=== PATIENT | male | born 1980 | race Hispanic/Latino ===

== ENCOUNTER 2017-10-28 17:33 | Inpatient (IN) | payer OTHER ==
[~2017-10-28] VITALS: Ht 172.7 cm; Wt 91.3 kg
[~2017-10-28 17:33] MED LIST: LIDOCAINE HCL 2% LOCAL INJ 5 ML SDV VIAL INJ ONE; PROPOFOL IV EMULSION 10 MG/ML 20 ML VIAL ONE
[2017-10-28 18:10] VITALS: BP 131/79
[2017-10-28 19:06] LABS: BASOPHILS % 0.5 % (0.0-1.0); EOSINOPHILS # (AUTO) 0.1 (0.0-0.4); EOSINOPHILS % 1.5 % (0.0-6.0); HEMATOCRIT 45.2 % (38.2-49.6); HEMOGLOBIN 15.4 g/dL (14.0-18.0); LYMPHOCYTES # (AUTO) 2.3 (1.0-3.2); LYMPHOCYTES % 30.5 % (18.0-39.1); MEAN CORPUSCULAR HEMOGLOBIN 29.7 pg (28-32); MEAN CORPUSCULAR HGB CONC 34.1 g/dL (31-35); MEAN CORPUSCULAR VOLUME 87.3 fL (81-99); MONOCYTES # (AUTO) 0.8 (0.2-0.8); MONOCYTES % 10.7 % (4.4-11.3); NEUTROPHILS # (AUTO) 4.2 (2.1-6.9); NEUTROPHILS % 56.7 % (38.7-80.0); PLATELET COUNT 209 x10e3/uL (140-360); RED BLOOD COUNT 5.18 x10e6/uL (4.3-5.7); RED CELL DISTRIBUTION WIDTH 12.7 % (11.7-14.4)
[2017-10-28 19:27] LABS: ALANINE AMINOTRANSFERASE 49 IU/L (0-55); ALBUMIN 3.7 g/dL (3.5-5.0); ALBUMIN/GLOBULIN RATIO 1.2 (0.8-2.0); ALKALINE PHOSPHATASE 63 IU/L (40-150); ANION GAP 12.8 mmol/L (8-16); BLOOD UREA NITROGEN 12 mg/dL (7-26); BUN/CREATININE RATIO 15 (6-25); CARBON DIOXIDE 25 mmol/L (22-29); CHLORIDE 107 mmol/L (98-107); EST GLOMERULAR FILTRATION RATE > 60 ML/MIN (60-); GLUCOSE 92 mg/dL (74-118); POTASSIUM 3.8 mmol/L (3.5-5.1); SODIUM 141 mmol/L (136-145)
[2017-10-28] MEDS ORDERED: HYDROMORPHONE 1MG/1ML INJ IV PRN (19:30)
[2017-10-28 19:39] LABS: COLOR,URINE YELLOW (YELLOW)
[2017-10-28 19:40] LABS: BILIRUBIN,URINE NEGATIVE (NEGATIVE); CLARITY,URINE CLEAR (CLEAR); KETONES,URINE NEGATIVE (NEGATIVE); LEUKOCYTE ESTERASE ,URINE NEGATIVE (NEGATIVE); NITRITE,URINE NEGATIVE (NEGATIVE); PROTEIN,URINE DIPSTICK NEGATIVE (NEGATIVE); URINE UROBILINOGEN 1 mg/dL (0.2 - 1)
[2017-10-28] MEDS: PANTOPRAZOLE 40 MG 10ML VIAL IV SCH (19:48)
[2017-10-28 19:49] LABS: BACTERIA,URINE FEW /HPF; CALCIUM OXALATE CRYSTALS,UR FEW (FEW); EPITHELIAL CELLS,URINE MODERATE /LPF; MUCUS,URINE MANY (RARE)
[2017-10-28] MEDS: ONDANSETRON HCL INJ 2 MG/ML VIAL IV PRN (19:50)
[2017-10-28] MEDS: DEXTROSE 5%/0.45% SOD CHL 1,000 ML IV SCH (19:55)
[2017-10-28 20:00] VITALS: BP 131/79
[2017-10-28] MEDS ORDERED: SODIUM CHLORIDE 0.9% 50ML 50 ML ONE (22:34)
[2017-10-28] MEDS ORDERED: IOPAMIDOL 370 MG/ML 200 ML INFUS..BTL INJ ONE (22:35)
--- NOTE | 2017-10-28 22:39 | Diagnostic Imaging Report ---
EXAM: CT CHEST, ABDOMEN, PELVIS with IV CONTRAST DATE: 10/28/2017 6:22 PM Time stamp on Exam: 2108 hours INDICATION: Dysphagia, chest pain, hiatal hernia, right upper quadrant pain COMPARISON: None TECHNIQUE: The chest, abdomen and pelvis were scanned using a multidetector helical scanner. Coronal and sagittal reformations were obtained. Dose modulation, iterative reconstruction, and/or weight based adjustment of the mA/kV was utilized to reduce the radiation dose to as low as reasonably achievable. Routine protocol performed. IV Contrast: 100 cc Isovue-370 Oral Contrast: Water CTDIvol has been reviewed. It is below the limits set by the Radiation Protocol Committee (RPC). FINDINGS: LUNGS AND AIRWAYS: The airways are patent. 8 mm nodule along the right major fissure is most consistent with an intrapulmonary lymph node. No consolidations or pulmonary edema. PLEURA: No effusions or pneumothorax HEART, MEDIASTINUM, VESSELS: Normal. No mediastinal mass or lymphadenopathy. LIVER: No masses BILIARY: The gallbladder has been removed. There is trace fluid in the gallbladder fossa. No ductal dilation. SPLEEN: No masses PANCREAS: No masses ADRENALS: No nodules KIDNEYS: Symmetric perfusion. No enhancing masses. No hydronephrosis. GI TRACT: The esophagus is mildly patulous. No wall thickening. No hiatal hernia. The stomach, small and large bowel are unremarkable. Normal appendix. VESSELS: Unremarkable PERITONEUM/RETROPERITONEUM: No free air or fluid LYMPH NODES: No lymphadenopathy REPRODUCTIVE ORGANS: Unremarkable BLADDER: Unremarkable SOFT TISSUES: Mild amount of subcutaneous stranding in the anterior abdomen, possibly related to recent procedure. No abnormal fluid collection. BONES: No suspicious bone lesions. IMPRESSION: Mildly patulous esophagus without wall thickening or evidence of hiatal hernia by CT. Cholecystectomy with small amount of fluid in the gallbladder fossa and mild stranding in the anterior abdominal subcutaneous tissues. Please correlate with possible recent cholecystectomy. Otherwise, normal CT of the chest, abdomen and pelvis. Signed by: Dr. Marilyn De Leon M.D. on 10/28/2017 9:39 PM
[2017-10-29] VITALS (7 sets, daily range): BP systolic 123–148; BP diastolic 65–99
[2017-10-29] MEDS: LORAZEPAM INJ 2 MG/ML VIAL IV PRN ×2 (02:53→09:21)
[2017-10-29] MEDS: HYDROMORPHONE 1MG/1ML INJ IV PRN ×5 (03:20→20:14)
[2017-10-29] MEDS ORDERED: ULTRAM50 MG PO (03:46)
[2017-10-29] MEDS ORDERED: ACETAMINOP325 MG/10 PO (03:47)
[2017-10-29] MEDS ORDERED: DOXYCYCLINE HY100 MG PO (03:51)
[2017-10-29] MEDS: DEXTROSE 5%/0.45% SOD CHL 1,000 ML IV SCH ×3 (06:51→20:14)
[2017-10-29] MEDS: PANTOPRAZOLE 40 MG 10ML VIAL IV SCH (08:03)
--- NOTE | 2017-10-29 15:21 | Diagnostic Imaging Report ---
PROCEDURE: BARIUM SWALLOW was performed with Sodium Carbonate and Barium. TECHNIQUE: Barium swallow examination was performed using effervescent crystals and high density barium. The usual fluoroscopy unit was not available during this examination, and a limited examination using the C-arm fluoroscopy unit was performed with the patient in the upright position. The usual prone and right anterior oblique views were not performed. COMPARISON: None. INDICATIONS: Dysphagia FINDINGS: Swallow: The esophagus was normally distensible and the mucosa was within normal limits. Gastroesophageal junction: There is no evidence of hiatal hernia. IMPRESSION: Limited examination for the reasons given above. No esophageal stricture or mass. Dictated by: Georgi Mackenzie M.D. on 10/29/2017 at 15:27 Electronically approved by: Georgi Mackenzie M.D. on 10/29/2017 at 15:27
[2017-10-29] MEDS: ONDANSETRON HCL INJ 2 MG/ML VIAL IV PRN ×2 (15:53→20:14)
[2017-10-30] VITALS (7 sets, daily range): BP systolic 126–163; BP diastolic 75–96
[2017-10-30] MEDS: HYDROMORPHONE 1MG/1ML INJ IV PRN ×6 (00:43→22:45)
[2017-10-30] MEDS: ONDANSETRON HCL INJ 2 MG/ML VIAL IV PRN ×5 (00:43→22:46)
[2017-10-30] MEDS: LORAZEPAM INJ 2 MG/ML VIAL IV PRN ×3 (01:34→20:10)
[2017-10-30] MEDS: DEXTROSE 5%/0.45% SOD CHL 1,000 ML IV SCH ×2 (05:17→20:16)
[2017-10-30] MEDS: PANTOPRAZOLE 40 MG 10ML VIAL IV SCH (09:12)
[2017-10-31 00:44] VITALS: BP 145/85
[2017-10-31] MEDS: ONDANSETRON HCL INJ 2 MG/ML VIAL IV PRN ×2 (04:30→13:29)
[2017-10-31] MEDS: HYDROMORPHONE 1MG/1ML INJ IV PRN ×2 (04:30→13:29)
[2017-10-31 05:33] VITALS: BP 152/93
[2017-10-31] MEDS: DEXTROSE 5%/0.45% SOD CHL 1,000 ML IV SCH (06:33)
[2017-10-31 08:00] VITALS: BP 126/66
[2017-10-31 09:10] VITALS: BP 126/66
[2017-10-31] MEDS ORDERED: SCOPOLAMINE 1.5 MG PATCH ONE (10:04)
[2017-10-31 11:10] VITALS: BP 140/84
--- NOTE | 2017-10-31 11:44 | Operative Report ---
DATE OF PROCEDURE: October 31, 2017 PREOPERATIVE DIAGNOSIS: Consisted of dysphagia. POSTOPERATIVE DIAGNOSES 1. Dysphagia. 2. Hiatal hernia. PROCEDURE PERFORMED: Esophagogastroduodenoscopy and balloon dilatation. PREOPERATIVE MEDICATIONS: Consisted of general anesthesia. DESCRIPTION OF PROCEDURE: Using an [employer] video gastroscope, it was inserted into the patient's oropharynx, advanced into the hypopharynx and down to the esophagus. The mucosal pattern in the esophagus was normal. There was no dilatation of the distal esophagus. There was a hiatal hernia present from 40 to 41 cm but no inflammation around it. The scope was able to pass through that area easily. No stricture was seen. The stomach was entered and insufflated with air. The mucosal pattern in the cardia, fundus, body, and antrum was viewed and found to be normal. The pylorus was visualized and entered. The duodenal bulb and postbulbar duodenum were found to be within normal limits. The endoscope was then withdrawn back up into the stomach, retroflexed viewing the cardia, fundus and below. It was normal. The endoscope was placed back into the area of the GE junction and using a 20 mm TTS balloon, the GE junction was dilated. At this point, we withdrew the endoscope back up into the esophagus where biopsies were obtained looking for any eosinophilic esophagitis. The endoscope was then withdrawn back up into the hypopharynx, oropharynx and out of the patient's mouth and procedure was ended. In conclusion, we had finding of a hiatal hernia, biopsies obtained looking for an eosinophilic esophagitis and the GE junction was dilated with a 20 mm through the scope balloon dilator because of his symptoms of dysphagia. Stomach gastritis that was present on prior exam has since gotten better and no other lesions were found. Job#: [id number] TEJAL
[2017-10-31] MEDS: PANTOPRAZOLE 40 MG 10ML VIAL IV SCH (13:21)
[2017-10-31] MEDS ORDERED: ATIVAN1 MG PO (14:30)
[2017-10-31] MEDS ORDERED: FENTANYL CITRATE/PF 100MCG/2 ML INJ ONE (14:55)
[2017-10-31] MEDS ORDERED: MIDAZOLAM HCL 2 MG/2 ML VIAL ONE (14:55)
--- NOTE | 2017-10-31 16:29 | Discharge Summary ---
ADMISSION DIAGNOSIS: Severe dysphagia. DISCHARGE DIAGNOSIS: Severe dysphagia with esophageal stricture. PRINCIPAL PROCEDURE: Esophagogastroduodenoscopy with esophageal dilation. HISTORY OF PRESENT ILLNESS: The patient is a 37-year-old male admitted to the hospital with complaints of severe dysphagia he had for a year and got progressively worse to the point he said he could not even swallow water. He had lost about 40 pounds. HOSPITAL COURSE: The patient was admitted to the hospital, initially evaluated with CT scan of the chest, abdomen and pelvis. This revealed what was described as a patulous esophagus and postoperative changes from recent cholecystectomy. Patient was seen in consultation by Dr. Dung Leon. A barium swallow was done also. This revealed a mildly dilated esophagus with a possible stricture. Findings suggested a possible early achalasia with a narrowing at the GE junction. He then the following day underwent upper GI endoscopy. Esophagus at that time appeared normal, but he did undergo esophageal dilation at the GE junction. After this was done, the patient improved. He was able to swallow and tolerate a regular diet. He was discharged home on the 3rd hospital day. At time of discharge he was swallowing well, tolerating diet. Vital signs were normal. He will follow up with Dr. Leon in approximately 1 to 2 weeks after discharge, follow up with Dr. Padilla about 2 weeks after discharge. Sent home in satisfactory condition on a regular diet. JASIEL PADILLA MD Job#: [id number] EV
== END 2017-10-31 15:12 | disposition home or self-care (01) | DRG 392 ==
LOC: MED/SURG3 18:05
PROVIDERS: ADMIT Surgery; ATTEND Surgery
PROC: 0D748ZZ Dilation of Esophagogastric Junction, Via Natural or Artificial Opening Endoscopic (ICD-10-PCS; principal; 2017-10-28)
PROC: 0DB48ZX Excision of Esophagogastric Junction, Via Natural or Artificial Opening Endoscopic, Diagnostic (ICD-10-PCS; 2017-10-28)
DX: K22.2 Esophageal obstruction (principal); R13.10 Dysphagia, unspecified; K44.9 Diaphragmatic hernia without obstruction or gangrene; K20.9 Esophagitis, unspecified; K29.70 Gastritis, unspecified, without bleeding
CPT/HCPCS: 36415; 43233; 43239; 71260; 74177; 74220; 80053; 81001; 85025; 88305; J1170; J2001; J2060; J2250; J2405; Q9967